=== PATIENT | male | born 1930 | race Caucasian/White ===

== ENCOUNTER 2017-01-05 09:52 | Day surgery (SDC) | payer MEDICARE, BC ==
[~2017-01-05 09:52] MED LIST: APRESOLINE25 MG/TAB PO; ASPIRIN FREE325 MG PO; B COMPLEX1 CAP PO; CATAPRES-T1 PATCH.WK TD; CLOBETASOL 0.0560 GM TP; DULCOLAX10 MG/SUPP RC; FISH OIL 1,0001 CA PO; FOLIC ACID1 MG PO; HYDROCHLOROTH12.5 M1 PO; LEVAQUIN750 MG PO; LISINOPRIL20 MG PO; METOPROLOL TART25 MG PO; METRONIDAZOLE500 MG PO; MULTIVITAMIN1 TAB PO; NORCO 5/325 TAB1 TAB PO; NORVASC10 M1 PO; OMEPRAZOLE20 M2 PO; SIMVASTATIN20 MG PO; TRANDATE300 M1 PO; VITAMIN B1100 MG PO; VITAMIN D-32000 UNI1 PO
[2017-01-05 10:58] LABS: BASO % 0.5 % (0-2); EOS % 0.9 % (0-7); EOSINOPHIL ABSOLUTE COUNT 0.1 tho/cmm (0.0-0.7); HCT-HEMATOCRIT 30.5 % (36.0-53.5); HGB-HEMOGLOBIN 10.6 gm/dl (13.5-17.0); IMMATURE GRANULOCYTES ABSOLUTE 0.26 tho/cmm (0-0.03); IMMATURE GRANULOCYTES PERCENT 3.2 % (0-0.3); LYMPH % 12.5 % (20-45); MCH (MEAN CORPUSCULAR HGB) 32.2 pg (28.0-32.0); MCHC MEAN CORPUSCULAR HGB CONC 34.8 % (32.0-36.0); MCV (MEAN CELL VOLUME) 92.7 fl (82.0-96.0); MONOCYTE ABSOLUTE COUNT 0.7 tho/cmm (0.0-1.2); NEUTROPHILS % 73.9 % (40-80); PLATELET COUNT 228 tho/cmm (150-450); RED BLOOD COUNT 3.29 mil/cmm (4.40-5.70); RED CELL DISTRIBUTION WIDTH 13.3 % (12.4-16.4); WHITE BLOOD COUNT 8.1 tho/cmm (4.0-10.0)
[2017-01-05 11:07] LABS: INR 1.3 INR (0.9-1.1); PROTHROMBIN TIME 15.7 SECONDS (9.0-13.6)
[2017-01-05 11:08] LABS: ANION GAP 13 mmol/L (0-20); BLOOD UREA NITROGEN 21 mg/dl (6-24); CALCIUM 8.6 mg/dl (8.5-10.5); CARBON DIOXIDE-VENOUS 29 mmol/L (22-32); CHLORIDE 102 mmol/l (96-110); CREATININE 0.89 mg/dl (0.60-1.30); GLUCOSE 116 mg/dL (70-110); POTASSIUM 3.7 mmol/L (3.7-5.1); SODIUM 140 mmol/L (135-145); eGFR VALUE FOR BLACK >90 mL/Min
[2017-01-05] MEDS ORDERED: COREG6.25 M1 PO (11:27)
[2017-01-05] MEDS ORDERED: FLOMAX0.4 M1 PO (11:28)
[2017-01-05] MEDS ORDERED: AMLODIPINE BESY10 M1 PO (11:28)
[2017-01-05] MEDS ORDERED: MECLIZINE HCL25 M3 PO (11:30)
[2017-01-05] MEDS ORDERED: CALCIUM MAGNES1 EAC1 PO (11:30)
[2017-01-05] MEDS ORDERED: FISH OIL 11000 MG/CA PO (11:31)
[2017-01-05] MEDS ORDERED: CASODEX PO (11:31)
[2017-01-05] MEDS ORDERED: VITAMIN B-12250 MC2 PO (11:31)
[2017-01-05] MEDS ORDERED: ZOLOFT50 M1 PO (11:32)
== END 2017-01-05 15:50 ==
LOC: RADSP 09:52 → SHSB 09:53 → PACU 13:12 → SHSB 13:50
PROVIDERS: Anesthesiology; Radiology Diagnostic Radiology
PROC: 0PU43JZ Supplement Thoracic Vertebra with Synthetic Substitute, Percutaneous Approach (ICD-10-PCS; principal; 2017-01-05)
DX: M48.54XA Collapsed vertebra, not elsewhere classified, thoracic region, initial encounter for fracture (principal); I10 Essential (primary) hypertension; E78.5 Hyperlipidemia, unspecified; K21.9 Gastro-esophageal reflux disease without esophagitis; C61 Malignant neoplasm of prostate; C79.51 Secondary malignant neoplasm of bone; M19.90 Unspecified osteoarthritis, unspecified site; Z79.899 Other long term (current) drug therapy; Z87.891 Personal history of nicotine dependence; Z90.49 Acquired absence of other specified parts of digestive tract; Z90.89 Acquired absence of other organs; Z98.890 Other specified postprocedural states
CPT/HCPCS: J0690